=== PATIENT | female | born 1995 | race Caucasian/White ===

== ENCOUNTER 2020-05-02 18:03 | Emergency (ER) | payer BC ==
[~2020-05-02] VITALS: Ht 162.6 cm; Wt 70.3 kg
[2020-05-02] MEDS ORDERED: CLINDAMYCIN PO (18:30)
[2020-05-02] MEDS ORDERED: PREDNISONE 5 MG5 M1 PO (18:31)
[2020-05-02 19:11] LABS: INFLUENZA A ANTIGEN Negative (Negative); INFLUENZA B ANTIGEN Negative (Negative)
[2020-05-02 20:55] LABS: ABSOLUTE LYMPHOCYTES 1.1 thou/uL (0.8-5.3); ABSOLUTE MONOCYTES 0.8 thou/uL (0.0-1.2); ABSOLUTE NEUTROPHILS 5.4 thou/uL (1.6-8.1); BASOPHILS 0.2 %; HEMATOCRIT 41.6 % (37.0-47.0); HEMOGLOBIN 14.3 gm/dL (12.0-15.0); LYMPHOCYTES 14.6 %; MCH 31.4 pg (26.0-34.0); MCHC 34.5 g/dL (28.0-37.0); MCV 91.2 fL (80.0-100.0); MONOCYTES 11.4 %; MPV 8.6 fl. (7.2-11.1); NUCLEATED RBCS 0 /100WBC; PLATELET COUNT* 198 thou/uL (150-400); POLYS 73.8 %; RBC 4.56 mil/uL (4.20-5.00); RDW-CV 13.7 % (10.5-14.5); WBC 7.3 thou/uL (4.0-11.0)
[2020-05-02 21:06] LABS: CALCIUM 9.4 mg/dL (8.5-10.1); CREATININE 0.8 mg/dL (0.6-1.3); POTASSIUM 3.9 mmol/L (3.5-5.1)
[2020-05-02 21:11] LABS: ALBUMIN 3.9 g/dL (3.4-5.0); TOTAL BILIRUBIN 0.4 mg/dL (<0.1-1.0); TOTAL PROTEIN 8.5 g/dL (6.4-8.2)
[2020-05-02] MEDS ORDERED: IBUPROFEN 800800 MG PO (22:52)
[2020-05-02] MEDS ORDERED: HYDROCODONE-ACE15 ML PO (22:52)
[2020-05-02] MEDS ORDERED: MAGIC MOUTHWASH SWISH&SPIT (23:07)
[2020-05-02 23:29] VITALS: BP 139/90
== END 2020-05-02 23:30 | disposition home or self-care (01) ==
LOC: EDBD 18:03 → M.ERS 18:03
PROVIDERS: Emergency Medicine; Nurse Practitioner Family
DX: J02.9 Acute pharyngitis, unspecified (principal); Z20.828 Contact with and (suspected) exposure to other viral communicable diseases; Z87.440 Personal history of urinary (tract) infections

== ENCOUNTER 2021-06-27 15:16 | Emergency (ER) | payer BC ==
[~2021-06-27] VITALS: Ht 165.1 cm; Wt 65.8 kg
[~2021-06-27 15:16] MED LIST: CLINDAMYCIN PO; HYDROCODONE-ACE15 ML PO; IBUPROFEN 800800 MG PO; MAGIC MOUTHWASH SWISH&SPIT; PREDNISONE 5 MG5 M1 PO
[2021-06-27] MEDS ORDERED: SKYLA1 EACH INTRAUTERI (15:24)
[2021-06-27 15:43] VITALS: BP 131/70
== END 2021-06-27 15:58 | disposition home or self-care (01) ==
LOC: M.ERS 15:16
DX: T16.2XXA Foreign body in left ear, initial encounter (principal); Z79.899 Other long term (current) drug therapy; X58.XXXA Exposure to other specified factors, initial encounter; Y93.89 Activity, other specified; Y92.89 Other specified places as the place of occurrence of the external cause; Y99.8 Other external cause status